=== PATIENT | male | born 1955 | race Caucasian/White ===

== ENCOUNTER → 2022-08-07 | Outpatient (CLI) | payer BC ==
[2022-08-07 12:20] LABS: INR 1.2 (<1.2); Partial Thromboplastin Time 29.5 sec (22.0-30.0)
[2022-08-07 15:36] LABS: Appearance,Urine Clear (Clear); Bilirubin,Urine Negative (Negative); Blood,Urine Negative (Negative); Color,Urine Yellow (Yellow); Ketones,Urine Negative (Negative); Nitrite,Urine Negative (Negative); Specific Gravity,Urine 1.019 (1.001-1.030); Urobilinogen,Urine 0.2 E.U./DL
[2022-08-07 17:32] LABS: HGB 15.8 d/dL (12.0-15.0); MCH 31.2 pg (27.0-32.0); MCHC 33.6 d/dL (32.0-37.0); MCV 92.9 FL (80.0-97.0); Mean Platelet Volume 12.1 FL (9.5-12.2); NRBC Per 100 WBC 0 X 10*3/uL (0.00-0.01); Platelet Count 158 X 10*3/uL (140-440); RBC 5.06 X 10*6/uL (4.40-5.60); RDW 12.6 % (11.5-14.5); WBC 5.71 X 10*3/uL (4.50-10.00)
[2022-08-08 01:43] LABS: ALT 26 U/L (10-49); AST 21 U/L (14-35); Albumin 4.3 d/dL (3.8-4.9); Albumin/Globulin Ratio 1.54 Ratio (1.60-3.17); Alkaline Phosphatase 52 U/L (41-126); Blood Urea Nitrogen 23.6 mg/dL (9.0-27.0); Calcium 9.7 mg/dL (8.7-10.3); Carbon Dioxide 23.3 mmol/L (21.6-31.8); Chloride 102 mmol/L (96-109); Globulin 2.8 d/dL (1.6-3.3); Glucose 183 mg/dL (70-110); Potassium 3.9 mmol/L (3.5-5.5); Sodium 140 mmol/L (135-145); Total Bilirubin 1.4 mg/dL (0.3-1.2); Total Protein 7.1 d/dL (6.2-8.2)
== END | disposition home or self-care (01) ==
LOC: LABWHC1 10:25
PROVIDERS: ATTEND Orthopaedic Surgery
DX: Z01.818 Encounter for other preprocedural examination (principal); M17.11 Unilateral primary osteoarthritis, right knee; I51.0 Cardiac septal defect, acquired; I21.19 ST elevation (STEMI) myocardial infarction involving other coronary artery of inferior wall; R94.31 Abnormal electrocardiogram [ECG] [EKG]
CPT/HCPCS: 36415; 80053; 81003; 85027; 85610; 85730; 87070; 93005

== ENCOUNTER → 2022-12-27 | Outpatient (CLI) | payer BC | END | disposition home or self-care (01) | LOC: LABPAT 11:27 | PROVIDERS: ATTEND Orthopaedic Surgery | DX: Z01.812 Encounter for preprocedural laboratory examination (principal); M17.11 Unilateral primary osteoarthritis, right knee | CPT/HCPCS: 87070 ==

== ENCOUNTER 2023-01-09 09:11 | Day surgery (SDC) | payer BC ==
[2023-01-05 13:36] VITALS: BMI 36.2
[~2023-01-09 09:11] MED LIST: ACETAMINOPHEN TAB 500 MG TAB PO PRN; GABAPENTIN 300 MG CAP PO PRN; MELOXICAM 7.5 MG TAB PO PRN; TRANEXAMIC 1,000 MG/100ML-NACL 1,000 MG in SALINE 1 100ML.BAG IVPB PRN; ceFAZolin 3 GM in SODIUM CHLORIDE 0.9% 100 ML IVPB PRN
[2023-01-09] MEDS: LACTATED RINGERS 1,000 ML IV SCH (10:09)
[2023-01-09 10:16] LABS: Glucose,Whole Blood 173 mg/dL (70-110)
[2023-01-09] MEDS ORDERED: ONDANSETRON 4 MG/2 ML VIAL ONE (10:19)
[2023-01-09] MEDS ORDERED: DEXAMETHASONE SOD PHOSPHATE 4 MG/ML 1 ML VIAL IVP ONE (10:23)
[2023-01-09] MEDS ORDERED: fentaNYL (PF) 50 MCG/ML 2 ML AMP IVP ONE (10:39)
[2023-01-09] MEDS ORDERED: MIDAZOLAM 2 MG/2 ML VIAL IVP ONE (10:40)
[2023-01-09] MEDS ORDERED: HYDROmorphone 0.5 MG/0.5 ML SYRINGE IVP PRN ×3 (10:50)
[2023-01-09] MEDS ORDERED: NALOXONE 0.4 MG/ML 1 ML VIAL IV PRN (10:50)
[2023-01-09] MEDS ORDERED: NA PHOS,M-B/NA PHOS,DI-BA 133 ML ENEMA RECTAL PRN (10:50)
[2023-01-09] MEDS ORDERED: MAGNESIUM HYDROXIDE 2,400 MG/30 ML CUP PO PRN (10:50)
[2023-01-09] MEDS ORDERED: bisacodyL 10 MG SUPP RECTAL PRN (10:50)
[2023-01-09] MEDS ORDERED: HYDROcodone/APAP 7.5-325MG 1 EACH TAB PO PRN (10:55)
[2023-01-09] MEDS ORDERED: ceFAZolin 1,000 MG in SODIUM CHLORIDE 0.9% 1,000 ML IRRIGATION ONE (11:02)
--- NOTE | 2023-01-09 11:19 | P.ANPRN ---
Procedure Note - Anesthesia - Nerve Block Performed Right Adductor Canal Infusion Time Out Performed: Yes (1039) Date of Procedure: 01/09/23 Procedure Start Time: 10:40 Procedure Stop Time: 10:45 Location of Patient: PreOp Indication: Acute Post-Operative Pain, Requested by Surgeon Specifically requested for management of pain by DrMelanie: Fernando Naranjo Sedation Type: Sedate with meaningful contact maintained Preparation: Sterile Prep Position: Supine Catheter Depth at Skin (cm): 7 Catheter: Indwelling Needle Types: Pajunk Needle Gauge: 21 Ultrasound used to visualize needle placement: Yes Ultrasound used to observe medication spread: Yes Injectate: 0.5% Ropivacaine (see comment for volume) (15cc +5cc nacl pf) Blood Aspirated: No Pain Paresthesia on Injection Noted: No Resistance on Injection: Normal Image Stored and Saved: Yes Events: Uneventful and Well Tolerated
--- NOTE | 2023-01-09 11:20 | P.ANPRN ---
Procedure Note - Anesthesia - Nerve Block Performed Right iPack Single Time Out Performed: Yes (1039) Date of Procedure: 01/09/23 Procedure Start Time: 10:46 Procedure Stop Time: 10:49 Location of Patient: PreOp Indication: Acute Post-Operative Pain, Requested by Surgeon Specifically requested for management of pain by DrMelanie: Fernando Naranjo Sedation Type: Sedate with meaningful contact maintained Preparation: Sterile Prep Position: Supine Catheter: None Needle Types: Pajunk Needle Gauge: 21 Ultrasound used to visualize needle placement: Yes Ultrasound used to observe medication spread: Yes Injectate: 0.5% Ropivacaine (see comment for volume) (15cc + 5cc nacl pf) Blood Aspirated: No Pain Paresthesia on Injection Noted: No Resistance on Injection: Normal Image Stored and Saved: Yes Events: Uneventful and Well Tolerated
--- NOTE | 2023-01-09 12:20 | P.OP ---
Date of Procedure: 01/09/23 Preoperative Diagnosis: Severe osteoarthritis right knee Postoperative Diagnosis: Severe osteoarthritis right knee Procedure(s) Performed: Right total knee arthroplasty Implants: Doan [employer] Nephew Journey II CR Oxinium cruciate retaining femoral component size 8, right Doan [employer]hew Journey nonporous tibial baseplate size 8, right Doan [employer]hew Journey II, XLPE Deep Dished articular insert, size 11 mm, Size 7-8, right [employer] Journey Keri II resurfacing patellar component, oval, 38 mm All components were cemented using Palacos R bone cement The articulation is Oxinium on polyethylene Anesthesia: SANJU Surgeon: Fernando Naranjo Substation Technician #1: Silke Negro Estimated Blood Loss (ml): 50 Pathology: none sent Condition: stable Disposition: PACU Indications for Procedure: The patient's knee is end-stage, and conservative management has failed. The operation of knee replacement has been discussed at length in the office, as well as potential risks and complications. These are inclusive of, but not limited to: Infection, bleeding, scarring, discomfort, stiffness, blood vessel and nerve damage, need for further surgery, failure to relieve symptoms, persistence, recurrence, or worsening of problems, loosening, dislocation, wear, blood clot, pulmonary embolism, , gait dysfunction, stiffness, and other risks as discussed in the office. Patient elects to proceed and the consent form has been signed. Operative Findings: The operative findings are consistent with severe osteoarthritis of the right knee Description of Procedure: The patient was seen in the preoperative area, the consent was reviewed and the operative site was marked with a skin marker. The patient verified the procedure and the operative site. An adductor canal pain catheter and an iPACK block were placed by anesthesia in the preoperative area. The patient was then brought to the operating room and positioned on the operating room table in the supine position. Preoperative antibiotics and a gram of tranexamic acid were given intravenously. A general anesthetic was administered by the anesthesia department. Care was taken to make sure that all pressure points were adequately padded. A tourniquet was placed on the upper thigh and the lower extremity was prepped with ChloraPrep and draped in usual sterile fashion. A universal time-out was then performed which confirmed the patient's name, surgical site, ALLERGIES, and consent. The lower extremity was then exsanguinated and tourniquet was inflated to 250 mmHg. A standard anterior midline approach to the knee was performed. The skin and subcutaneous tissue were sharply dissected down to the patellar tendon. A medial parapatellar arthrotomy was then performed. The knee was then extended, the patellar was everted, and the knee was flexed. The infra-patellar fat pad was removed in order to enhance exposure. The anterior horns of both menisci were excised, and a release was performed to the posterior medial aspect of the knee. On gross visual inspection, there was complete loss of articular cartilage in the medial and patellofemoral joint spaces. There was also significant cartilage damage in the lateral compartment. There were multiple periarticular osteophytes globally about the knee which were then removed with a Ronguer. The femoral canal was then opened with the 9.5 mm intramedullary drill. The 8 mm intramedullary mare was then inserted into the femoral canal with the distal femoral cutting guide set for 5 of valgus. The distal femoral cutting block was then pinned in place. The intramedullary mare was then removed, and the distal femur was then cut. The cutting block was then removed and the cut was checked for symmetry. The resected bone was then measured to confirm the appropriate distal femoral resection. Next, the sizing guide was then placed and set for 3 external rotation based off of the epicondylar axis and Anson's line. Pins were then placed and the drill holes, and the femur was sized with the sizing stylus. The pins were then removed, and the sizing guide was then removed. The spikes of the appropriate size femoral block was then placed into the predrilled holes, and malleted into place. Two 45 mm pins were then placed into the fixation holes on the cutting block. An luzma wing was then used to ensure there would be no notching with the anterior cut. The anterior condyles were cut without notching. The anterior chord cut was then performed, followed by the posterior cut, posterior chamfer cut, and the anterior chamfer cut. The collateral ligaments were protected during the entire process. The cutting block was then removed. Any remaining bone and osteophytes were removed from the femur with a Ronguer. Attention was then directed to the tibia. The remaining ACL was removed with a Ronguer, and the tibia was then gently subluxed forward with a large bent knee retractor. Any remaining menisci were excised. The posterior lateral corner was cauterized in order to coagulate the lateral geniculate artery. The extra medullary tibial cutting guide was then placed, set for the appropriate rotation, slope, and depth of resection. The proximal tibia cutting guide was then pinned in place. Proximal tibia was then cut and sized. A curved osteotome was then used to remove any posterior osteophytes from the distal femur. The femoral trial was placed. A narrow saw blade was then used to remove the anterior intracondylar femoral bone. The CR notch trial was then placed. The tibial trial was placed with the appropriate-sized insert. The knee was able to fully extend and flex to 130 and was stable throughout all range of motion. The knee was then extended and the patella was everted. Patella was then measured, and then using an osteotomy guide, the patella was cut at the appropriate level. The patellar component was sized. The patellar drill guide was placed and the patella was drilled. The patella trial was then placed. The knee was then taken through range of motion with the patella trial and the patella tracked normally using the no thumbs technique. The patella trial was t hen removed. The knee was then flexed and lug holes were drilled through the femoral trial and the femoral trial was then removed. The tibial was then re- exposed, and the tibial broach guide was then pinned in place after it was set for the appropriate rotation to allow for the most coverage without overhang. The tibia was then reamed and broached. The femoral canal was plugged with autologous bone. The cut surfaces of bone were then irrigated with pulsatile lavage. The knee was also irrigated with Irrisept solution. The components were then opened, the cement was mixed. Cement was placed on the backside of the femoral, tibial, and patellar components. Cement was then applied to the tibial surface and pressurized into the surface using finger pressurization technique. The tibial component was then applied and excess cement was removed after it was impacted securely noted to be flush with the cut surface. In similar fashion, the cement was applied to the cut femoral surface, pressurized and using finger pressurization the component was impacted in place. Excess cement was removed. The polyethylene spacer was then implanted and locked into position. Patellar component was then applied in a similar technique and the patellar clamp was used to hold patella in place while the cement hardened. The knee was held in full extension while the cement hardened. Once the cement had fully hardened, the knee was reinspected. Any other cement extrusion was removed the final range of motion testing showed range of motion from 0-130 with excellent stability, both medial and laterally and appropriate alignment of the leg. Patella tracked normally. After the cemented hardened, the tourniquet was released and hemostasis was obtained. A second gram of transexamic acid was given intravenously. The knee was again irrigated. The knee was again taken through range of motion and found to be stable throughout all range of motion of 0-130, and the patella tracked normally. The fascia was then closed with 0 Vicryl followed by #2 strata fix suture. The subcutaneous tissue was closed with 3-0 Vicryl and 3-0 strata fix. Exofin glue was used for the skin and placed with the knee in flexion. After the glue had dried, and Optafoam silver impregnated dressing was applied. A lightly compressive dressing was applied using web roll and Sony wrap. Patient was then transferred to the stretcher and taken to recovery room in stable condition. Sponge and needle counts were correct. The diversional therapist's assistant SHARRI Wadsworth was required due the complexity surgery and the need for a skilled staff physical therapy assistant. She assisted in positioning, draping, retraction, and closure of the wound.
[2023-01-09] MEDS: HYDROmorphone 0.5 MG/0.5 ML SYRINGE IVP PRN ×4 (13:05→13:50)
[2023-01-09] MEDS ORDERED: SODIUM CHLORIDE 0.9% 1,000 ML IV ONE ×2 (13:45)
[2023-01-09] MEDS ORDERED: hydrALAZINE HCL 20 MG/ML 1 ML VIAL IVP ONE (13:50)
--- NOTE | 2023-01-09 14:24 | XR ---
EXAMINATION TYPE: XR knee limited RT DATE OF EXAM: 01/09/2023 Comparison: None Clinical History: 67-year-old male Evaluation for Postop abnormality and alignment Findings: Image shows placement of right total knee arthroplasty. Both distal femoral and proximal tibial compo nents of the prosthesis are well seated without periprosthetic fracture. Alignment grossly anatomic. Anterior soft tissue swelling with soft tissue air as well as intra-articular air related to recent o peration. Alignment grossly anatomic. Impression: Uncomplicated postoperative appearance right total knee arthroplasty.
[2023-01-09] MEDS: SODIUM CHLORIDE 0.9% 1,000 ML IV SCH (15:04)
[2023-01-09 17:42] LABS: Glucose,Whole Blood 240 mg/dL (70-110)
[2023-01-09] MEDS: ceFAZolin 3 GM in SODIUM CHLORIDE 0.9% 100 ML IVPB SCH (18:27)
[2023-01-09] MEDS ORDERED: DEXTROSE 50% SYRINGE 50 ML IVP PRN ×2 (18:32)
--- NOTE | 2023-01-09 18:35 | P.CONS ---
History of Present Illness - Reason for Consult Consult date: 01/09/23 - History of Present Illness 67-year-old male with PMH of gout, DM, hypertension, hypothyroidism, GERD presents to [facility] for elective surgery. He underwent right total knee arthroplasty with Marcella Campos. [facility] has been consulted for medical management of this patient. Patient has been able to urinate since his surgery. No bowel movement. Not passing gas. Reports right knee pain well-controlled at 6 out of 10 severity. He has no other complaints. Pertinent positives and negatives as discussed in HPI, a complete review of systems was performed and all other systems are negative. General: non toxic, no distress, appears at stated age Derm: warm, dry Head: atraumatic, normocephalic, symmetric Eyes: EOMI, no lid lag, anicteric sclera Cardiovascular: S1S2 reg, no murmur Lungs: CTA bilateral, no rhonchi, no rales , no accessory muscle use Abdominal: soft, nontender to palpation, no guarding, no appreciable organomegaly Ext: no gross muscle atrophy, no edema, no contractures Neuro: no focal neuro deficits Psych: Alert, oriented, appropriate affect Based on my assessment of this patient, this patient meets a moderate complexity level of care. Patient has a chronic diagnosis as below. Hypertension: HCTZ 25 mg PO QD. Losartan 25 mg PO QD. Diabetes mellitus: ISS. Accuchecks ACHS. Hypoglycemic precautions. Hypothyroidism: Synthroid 200 mcg PO QD. Gout: Allopurinol 300 mg PO QD. GERD: Omeprazole 40 mg PO QD. CODE STATUS: FULL CODE. DVT Prophylaxis: Xarelto. GI Prophylaxis: Omeprazole Designated medical POA if patient is not able to make medical decisions for t hemselves: I have reviewed the following practice consultant notes: Operative and surgery note. I have reviewed the results of the following tests: POC glucose. I have ordered the following tests: Agree with CBC for tomorrow morning. I have discussed the care of this patient with the following independent historian: I have independently interpreted the following test below: I have discussed the management of this patient with the following physician: Past Medical History Past Medical History: Coronary Artery Disease (CAD), Diabetes Mellitus, Deep Vein Thrombosis (DVT), GERD/Reflux, Hypertension, Osteoarthritis (OA), Pulmonary Embolus (PE), Thyroid Disorder Additional Past Medical History / Comment(s): Gout. Hx DVT and PE in 2019. "Always have elevated liver enzymes, they found a growth by my liver, I had a biopsy, it was fine." History of Any Multi-Drug Resistant Organisms: None Reported Past Surgical History: Cholecystectomy, Heart Catheterization With Stent, Hernia Repair Additional Past Surgical History / Comment(s): Abdominal hernia repair X2, 2 cardiac stents 2019. Past Anesthesia/Blood Transfusion Reactions: No Reported Reaction, Motion Sickness Date of Last Stent Placement:: 12/2019 Past Psychological History: No Psychological Hx Reported Smoking Status: Never smoker Past Alcohol Use History: None Reported Past Drug Use History: None Reported - Past Family History Mother Family Medical History: No Reported History Medications and Allergies Home Medications Medication Instructions Recorded Confirmed Type Ascorbic Acid [Vitamin C] 1,000 mg PO DAILY 08/11/22 01/09/23 History Finasteride 1 mg PO DAILY 08/11/22 01/05/23 History Levothyroxine Sodium 200 mcg PO DAILY 08/11/22 01/09/23 History Meloxicam [Mobic] 15 mg PO DAILY PRN 08/11/22 01/05/23 History [place]-3/Dha/Epa/Fish Oil [Fish Oil 1 each PO DAILY 08/11/22 01/05/23 History 1,000 mg Softgel] Omeprazole [PriLOSEC] 40 mg PO DAILY 08/11/22 01/09/23 History Rivaroxaban [Xarelto] 10 mg PO DAILY 08/11/22 01/09/23 History allopurinoL [Zyloprim] 300 mg PO DAILY 08/11/22 01/09/23 History hydroCHLOROthiazide 25 mg PO DAILY 08/11/22 01/09/23 History metFORMIN HCL [Glucophage] 1,000 mg PO BID 08/11/22 01/09/23 History Losartan Potassium 25 mg PO DAILY 01/05/23 01/09/23 History HYDROcodone/APAP 7.5-325MG [[place] 1 - 2 tab PO Q6H PRN #32 tab 01/09/23 Rx 7.5-325] Sennosides [Senokot] 2 tab PO DAILY PRN #60 tablet 01/09/23 Rx Allergies Allergy/AdvReac Type Severity Reaction Status Date / Time perflutren [From Definity] Allergy Severe PARALIZED Verified 01/09/23 09:34 FROM NECK TO BUTTOCKS Physical Exam Vitals: Vital Signs Temp Pulse Resp BP Pulse Ox 01/09/23 16:00 80 135/77 94 L 01/09/23 15:45 81 149/79 01/09/23 15:30 76 140/80 92 L 01/09/23 15:15 79 160/77 94 L 01/09/23 15:00 80 160/87 89 L 01/09/23 14:45 73 18 136/80 92 L 01/09/23 14:30 62 133/73 95 01/09/23 14:20 160/89 01/09/23 14:15 67 134/70 93 L 01/09/23 14:05 77 16 163/93 93 L 01/09/23 14:00 64 152/70 95 01/09/23 13:50 79 16 182/93 90 L 01/09/23 13:45 54 L 18 131/73 96 01/09/23 13:35 80 16 182/90 93 L 01/09/23 13:20 81 16 189/91 95 01/09/23 13:05 82 18 187/91 98 01/09/23 12:50 85 20 189/94 99 01/09/23 10:46 75 16 151/75 96 01/09/23 09:43 97.6 F 67 18 171/83 92 L Intake and Output 01/09/23 01/09/23 01/09/23 06:59 14:59 22:59 Intake Total 1301 200 Output Total 50 200 Balance 1251 0 Intake: IV 1301 Oral 200 Output: Urine 200 Estimated Blood Loss 50 Other: Weight 128.7 kg 128.7 kg Results Labs: Abnormal Lab Results - Last 24 Hours (Table) 01/09/23 01/09/23 Range/Units 10:05 17:40 POC Glucose (mg/dL) 173 H 240 H (70-110) mg/dL
[2023-01-09 20:37] LABS: Glucose,Whole Blood 241 mg/dL (70-110)
[2023-01-09] MEDS ORDERED: SENNOSIDES-DOCUSATE SODIUM 1 EACH TAB PO SCH (21:00)
[2023-01-09] MEDS: INSULIN ASPART (NovoLOG) 100 UNIT/ML VIAL SQ SCH (21:37)
[2023-01-10] MEDS: SODIUM CHLORIDE 0.9% 1,000 ML IV SCH (03:46)
[2023-01-10] MEDS: ceFAZolin 3 GM in SODIUM CHLORIDE 0.9% 100 ML IVPB SCH (03:53)
[2023-01-10] MEDS: HYDROcodone/APAP 7.5-325MG 1 EACH TAB PO PRN ×2 (04:03→12:40)
[2023-01-10 05:43] LABS: Glucose,Whole Blood 172 mg/dL (70-110)
[2023-01-10] MEDS: INSULIN ASPART (NovoLOG) 100 UNIT/ML VIAL SQ SCH ×2 (05:48→12:37)
[2023-01-10] MEDS: LACTATED RINGERS 1,000 ML IV SCH (05:49)
[2023-01-10] MEDS ORDERED: LEVOTHYROXINE 100 MCG TAB PO SCH (06:30)
--- NOTE | 2023-01-10 07:07 | P.PN ---
Progress Note - Text Progress Note Date: 01/10/23 (195) Anesthesiology Postop day 1 status post total knee arthroplasty with adductor canal catheter. Patient doing well. VAS 5 out of 10. Gross strength intact in lower extremity. Afebrile. Denies alterations in sensorium. Catheter site intact. Heart regular rate Lungs nonlabored Abdomen nondistended Assessment: Postop day 1 status post total knee arthroplasty with adductor canal catheter Plan: 1.All questions answered. Maintain catheter 2 more days with patient removal at home. Instructions to be given at discharge. 2.This note was dictated using [employer] software. Please be advised there is a potential for misspellings or errors in vine fruit farming supervisor.
[2023-01-10 07:58] VITALS: RESP 19
[2023-01-10 08:48] LABS: Basophils # (A) 0.03 X 10*3/uL (0.00-0.10); Basophils % (A) 0.3 %; Eosinophils # (A) 0.03 X 10*3/uL (0.04-0.35); Eosinophils % (A) 0.3 %; HCT 43.1 % (39.6-50.0); HGB 14.4 g/dL (13.0-17.0); Lymphocytes # (A) 1.06 X 10*3/uL (0.90-5.00); Lymphocytes % (A) 10.2 %; MCH 30.6 pg (27.0-32.0); MCHC 33.4 g/dL (32.0-37.0); MCV 91.7 FL (80.0-97.0); Mean Platelet Volume 10.7 FL (9.5-12.2); Monocytes # (A) 0.98 X 10*3/uL (0.20-1.00); Monocytes % (A) 9.4 %; NRBC Per 100 WBC 0 X 10*3/uL (0.00-0.01); Neutrophils # (A) 8.23 X 10*3/uL (1.80-7.70); Neutrophils % (A) 79.1 %; Platelet Count 157 X 10*3/uL (140-440); RDW 13.1 % (11.5-14.5)
[2023-01-10] MEDS ORDERED: PANTOPRAZOLE 40 MG TABLET PO SCH (09:00)
[2023-01-10] MEDS ORDERED: NON FORMULARY DRUG (Finasteride [Finasteride] 1 MG Tablet) PO SCH (09:00)
[2023-01-10] MEDS ORDERED: LOSARTAN 25 MG TAB PO SCH (09:00)
[2023-01-10] MEDS ORDERED: hydroCHLOROthiazide 25 MG TAB PO SCH (09:00)
[2023-01-10] MEDS ORDERED: RIVAROXABAN 10 MG TAB PO SCH (09:00)
[2023-01-10] MEDS ORDERED: allopurinoL 300 MG TAB PO SCH (09:00)
--- NOTE | 2023-01-10 10:20 | P.DS ---
Providers Expected date of discharge: 01/10/23 Attending physician: Fernando Naranjo Consults: 01/09/23 10:50 Consult Physician Routine Consulting Provider: Norma Baker Consult Reason/Comments: medical management Do you want consulting provider notified?: Yes Primary care physician: Jonas Lopez - Discharge Diagnosis(es) (1) Osteoarthritis of right knee Current Visit: Yes Status: Acute (2) S/P total knee arthroplasty Current Visit: Yes Status: Acute Hospital Course: This is a 67-year-old male with known history of degenerative arthritis of the right knee. The patient presented for evaluation as an outpatient. After discussion and consideration patient elects to proceed with total knee arthroplasty. The patient is seen preoperatively by Dr. Naranjo and medically cleared for surgery by their primary care physician. Patient is admitted to [facility] on 01/09/2023 for total knee arthroplasty. The procedure is performed without complication or sequelae. The patient is doing well postoperatively. Labs and vital signs are stable on day of discharge. On day of discharge patient's knee incision is healing well. There is minimal erythema. There is no drainage noted at this time. There is minimal soft tissue swelling to the knee. Patient has full foot and ankle motion without difficulty or pain. Calf is soft and nontender to palpation. Neurovascular status to the right lower extremity is intact. Patient is discharged home in good condition. Please see med rec for accurate list of home medications. Plan - Discharge Summary Discharge Rx Participant: No New Discharge Prescriptions: New HYDROcodone/APAP 7.5-325MG [[place] 7.5-325] 1 - 2 tab PO Q6H PRN #32 tab PRN Reason: Pain Sennosides [Senokot] 2 tab PO DAILY PRN #60 tablet PRN Reason: Constipation Continue Omeprazole [PriLOSEC] 40 mg PO DAILY metFORMIN HCL [Glucophage] 1,000 mg PO BID allopurinoL [Zyloprim] 300 mg PO DAILY hydroCHLOROthiazide 25 mg PO DAILY Meloxicam [Mobic] 15 mg PO DAILY PRN PRN Reason: Pain Finasteride 1 mg PO DAILY [place]-3/Dha/Epa/Fish Oil [Fish Oil 1,000 mg Softgel] 1 each PO DAILY Ascorbic Acid [Vitamin C] 1,000 mg PO DAILY Rivaroxaban [Xarelto] 10 mg PO DAILY Levothyroxine Sodium 200 mcg PO DAILY Losartan Potassium 25 mg PO DAILY Discharge Medication List Ascorbic Acid [Vitamin C] 1,000 mg PO DAILY 08/11/22 [History] Finasteride 1 mg PO DAILY 08/11/22 [History] Levothyroxine Sodium 200 mcg PO DAILY 08/11/22 [History] Meloxicam [Mobic] 15 mg PO DAILY PRN 08/11/22 [History] [place]-3/Dha/Epa/Fish Oil [Fish Oil 1,000 mg Softgel] 1 each PO DAILY 08/11/22 [History] Omeprazole [PriLOSEC] 40 mg PO DAILY 08/11/22 [History] Rivaroxaban [Xarelto] 10 mg PO DAILY 08/11/22 [History] allopurinoL [Zyloprim] 300 mg PO DAILY 08/11/22 [History] hydroCHLOROthiazide 25 mg PO DAILY 08/11/22 [History] metFORMIN HCL [Glucophage] 1,000 mg PO BID 08/11/22 [History] Losartan Potassium 25 mg PO DAILY 01/05/23 [History] HYDROcodone/APAP 7.5-325MG [[place] 7.5-325] 1 - 2 tab PO Q6H PRN #32 tab 01/09/23 [Rx] Sennosides [Senokot] 2 tab PO DAILY PRN #60 tablet 01/09/23 [Rx] Follow up Appointment(s)/Referral(s): Jonas Lopez DO [Primary Care Provider] - 1 Week [facility] [NON-STAFF] - As Needed (Please call [facility] once home to arrange delivery of the Continuous Passive Motion (CPM) machine. ) [facility] [NON-STAFF] - 1-2 Days ([facility] will call you to schedule your in home physical therapy visits. ) Fernando Naranjo DO [Doctor of Osteopathic Medicine] - 01/22/23 1:00 pm (With Silke) Activity/Diet/Wound Care/Special Instructions: Weightbearing as tolerated with a walker. CPM 5-6h daily as tolerated. Leave dressing intact. Dressing may be removed by home care nurse or by patient in 7 days. Then change dressing twice daily until follow up. May shower with initial dressing intact and after removal. If dressing become saturated, please remove. Recommend use of compression stockings daily until follow up to help prevent swelling and blood clots. May remove at night before sleeping. Please resume Xarelto. Please follow up with [facility] and call with any questions or concerns, . Discharge Disposition: HOME WITH HOME HEALTH SERVICES
[2023-01-10 11:42] LABS: Glucose,Whole Blood 336 mg/dL (70-110)
--- NOTE | 2023-01-10 13:15 | P.PN ---
Subjective Progress Note Date: 01/10/23 67-year-old male with PMH of gout, DM, hypertension, hypothyroidism, GERD presents to [facility] for elective surgery. He underwent right total knee arthroplasty with Marcella Campos. [facility] has been consulted for medical management of this patient. Patient has been able to urinate since his surgery. No bowel movement. Not passing gas. Reports right knee pain well-controlled at 6 out of 10 severity. He has no other complaints. 01/10 Patient was seen and examined. No events. Working well with PT and OT. Plans for discharge home today. CBC WBC 10.4. POC glucose 172-241. General: non toxic, no distress, appears at stated age Derm: warm, dry Head: atraumatic, normocephalic, symmetric Eyes: EOMI, no lid lag, anicteric sclera Cardiovascular: S1S2 reg, no murmur Lungs: CTA bilateral, no rhonchi, no rales , no accessory muscle use Abdominal: soft, nontender to palpation, no guarding, no appreciable organomegaly Ext: no gross muscle atrophy, no edema, no contractures Neuro: no focal neuro deficits Psych: Alert, oriented, appropriate affect Based on my assessment of this patient, this patient meets a moderate complexity level of care. Patient has a chronic diagnosis as below. Hypertension: HCTZ 25 mg PO QD. Losartan 25 mg PO QD. Diabetes mellitus: ISS. Accuchecks ACHS. Hypoglycemic precautions. Hypothyroidism: Synthroid 200 mcg PO QD. Gout: Allopurinol 300 mg PO QD. GERD: Omeprazole 40 mg PO QD. CODE STATUS: FULL CODE. DVT Prophylaxis: Xarelto. GI Prophylaxis: Omeprazole Designated medical POA if patient is not able to make medical decisions for the mselves: I have reviewed the following instructional consultant notes: Ortho surgery note. I have reviewed the results of the following tests: POC glucose, CBC. I have ordered the following tests: I have discussed the care of this patient with the following independent historian: I have independently interpreted the following test below: I have discussed the management of this patient with the following physician: Objective - Vital Signs Vital signs: Vital Signs Temp 98.1 F 01/10/23 06:54 Pulse 58 L 01/10/23 06:54 Resp 19 01/10/23 09:32 BP 110/66 01/10/23 06:54 Pulse Ox 91 L 01/10/23 06:54 FiO2 Intake & Output 01/09/23 01/10/23 01/10/23 18:59 06:59 18:59 Intake Total 1501 Output Total 250 1800 Balance 1251 -1800 Weight 128.7 kg Intake: IV 1301 Oral 200 Output: Urine 200 1800 Estimated Blood Loss 50 Other: Voiding Method Urinal Urinal - Labs CBC & Chem 7: 01/10/23 05:41 Labs: Abnormal Lab Results - Last 24 Hours (Table) 01/09/23 01/09/23 01/09/23 Range/Units 10:05 17:40 20:34 WBC (4.50-10.00) X 10*3/uL Neutrophils # (1.80-7.70) X 10*3/uL Eosinophils # (0.04-0.35) X 10*3/uL POC Glucose (mg/dL) 173 H 240 H 241 H (70-110) mg/dL 01/10/23 01/10/23 Range/Units 05:39 05:41 WBC 10.40 H (4.50-10.00) X 10*3/uL Neutrophils # 8.23 H (1.80-7.70) X 10*3/uL Eosinophils # 0.03 L (0.04-0.35) X 10*3/uL POC Glucose (mg/dL) 172 H (70-110) mg/dL
[2023-01-10 14:16] VITALS: BP 126/69; PULSE 72; TEMP 97.9
== END 2023-01-10 14:38 | disposition home health service (06) ==
LOC: OR 09:11 → 4SSUR 12:42 → OR 01-10 14:38
PROVIDERS: ATTEND Orthopaedic Surgery
DX: M17.11 Unilateral primary osteoarthritis, right knee (principal); G89.18 Other acute postprocedural pain; I10 Essential (primary) hypertension; E11.9 Type 2 diabetes mellitus without complications; E03.9 Hypothyroidism, unspecified; K21.9 Gastro-esophageal reflux disease without esophagitis; I25.10 Atherosclerotic heart disease of native coronary artery without angina pectoris; M19.90 Unspecified osteoarthritis, unspecified site; Z86.711 Personal history of pulmonary embolism; Z90.49 Acquired absence of other specified parts of digestive tract; Z95.1 Presence of aortocoronary bypass graft; Z95.5 Presence of coronary angioplasty implant and graft; Z79.890 Hormone replacement therapy; Z79.899 Other long term (current) drug therapy; Z79.01 Long term (current) use of anticoagulants; Z79.84 Long term (current) use of oral hypoglycemic drugs
CPT/HCPCS: 94760; 73560; 27447; 64448; 64999; J2250; J0360; J1100; J0690 ×2; J2405; J3010; J1170; 85025

== ENCOUNTER → 2024-05-07 | Outpatient (CLI) | payer BC ==
--- NOTE | 2024-05-07 10:39 | CT ---
EXAMINATION TYPE: CT knee RT wo con DATE OF EXAM: 05/07/2024 COMPARISON: None CLINICAL INDICATION: Male, 69 years old with history of T84.029A DISLOCATION OF UNSP INTERNAL JOINT P ROSTH; [facility], Knee replacement 16 months ago. Pt c/o ongoing pain and discomfort. CT DLP: 604.[address] of the right knee was performed in the axial coronal and sagittal p lanes. Extensive streak artifact limits evaluation. Automated exposure control for dose reduction was used. FINDINGS: Noted are changes of total knee arthroplasty involving the right knee with tibial and femoral compone nts appearing well seated. There is no evidence for dislocation at this time. Patellar component is w ithin normal limits and appropriately seated. Small suprapatellar joint effusion noted. There is no e vidence for fracture. No CT evidence to suggest loosening or periprosthetic infection. IMPRESSION: TOTAL KNEE ARTHROPLASTY WITHOUT EVIDENCE FOR LOOSENING, PERIPROSTHETIC INFECTION OR DISLOCATION. SMAL L JOINT EFFUSION. [facility], , 05/07/2024 10:37 AM
== END | disposition home or self-care (01) ==
LOC: RADCTMAIN 09:49
PROVIDERS: ATTEND Orthopaedic Surgery
DX: T84.029A Dislocation of unspecified internal joint prosthesis, initial encounter (principal); M25.461 Effusion, right knee; Z96.659 Presence of unspecified artificial knee joint